=== PATIENT | male | born 1980 | race Caucasian/White ===

== ENCOUNTER 2024-12-16 10:55 | Emergency (ER) | payer OTHER, SELFPAY ==
[2024-12-16 10:56] VITALS: BP 156/110
--- NOTE | 2024-12-16 12:03 | ED.GENMED ---
History of Present Illness
General
Chief Complaint: Anal/Rectal Problem
Source: patient
Exam Limitations: none
Time Seen by Provider: 12/16/24 11:39
History of Present Illness
History of Present Illness:
44-year-old male presents with increasing pain and swelling to the perianal region over the past several days. Associate with intermittent fever. Started as lower back pain progressed into perianal pain. He seen by the doctor yesterday and was
started on Cipro. He has an appoint with colorectal in 2 days however the pain is increasing. No other complaints at this time
Past History
Past History
ED Past Medical History: None
ED Past Surgical History: Other (dental)
Social History
Tobacco: Non-smoker
Alcohol: None
Drug: None
Personal:
Living: with family
Phy Exam
Physical Exam
Physical Exam:
General: Well-appearing male no acute respiratory distress
HEENT normocephalic atraumatic abdomen is
Soft nontender
Rectal exam: Area of fluctuant noted over the perianal region on the right side at about 3:00. There is a small amount of drainage. This is tender to the touch
Course
Orders/Labs/Results
Orders:
Orders
12/16/24 12:01
HYDROmorphone [Dilaudid] 0.5 mg IV NOW STA
12/16/24 12:09
Complete Blood Count/With Diff Urgent
Comprehensive Metabolic Panel Urgent
Abnormal Lab Results
12/16/24
12:09
MPV 10.8 H fL
(7.4-10.4)
Absolute Neuts (auto) 8.6 H 10^3/uL
(1.4-6.5)
Absolute Lymphs (auto) 1.0 L 10^3/uL
(1.2-3.4)
Absolute Monos (auto) 1.1 H 10^3/uL
(0.1-0.6)
Neutrophils % 79.9 H %
(42.2-75.2)
Lymphocytes % 9.1 L %
(20.5-51.1)
Monocytes % 10.3 H %
(1.7-9.3)
12/16/24 12:09
12/16/24 12:09
Vital Signs
Initial and Last Documented VS:
Initial Vital Signs
Temp Pulse Resp BP Pulse Ox
99.1 F 121 20 156/110 98
12/16/24 10:56 12/16/24 10:56 12/16/24 10:56 12/16/24 10:56 12/16/24 10:56
Last Documented Vital Signs
Temp Pulse Resp BP Pulse Ox
99.1 F 121 20 156/110 98
12/16/24 10:56 12/16/24 10:56 12/16/24 10:56 12/16/24 10:56 12/16/24 12:04
MDM/Problems Addressed
Differential Diagnosis Includes:
Perianal pain. Exam most consistent with abscess. Do not this thrombosed hemorrhoid. That abscess is quite visible. Discussion was had with patient regarding treatment options. Will decide incise and drain. Will treat with IV pain medication
prior to
*Pulse Oximetry
SaO2: 98
Oxygen Mode of Delivery: Room air
Patient hypoxic: no
*Critical Care Note
Total Time (30-74mins, 75-104mins- exclusive of procedures): Not Applicable
Update Note
Update Note:
Patient had his perianal abscess drained by myself. The area was cleansed with saline and anesthetized with 1% lidocaine with epinephrine. A large amount of purulent material was expressed after an 11 blade scalpel was used to make an incision.
Once the drainage slowed down loculations were broken up with needle drivers. Some further purulence was expressed followed by bloody return. This was then irrigated copiously with saline. Gauze was placed into the area to remain in place to
catch any further drainage. He will continue his antibiotic. He has a follow-up appoint with colorectal in 2 days. White count normal and blood work. No indication for admission patient feeling better
ED Attending Note
-
Portions of this chart may have been created with voice recognition software.� Occasional wrong word or��sound alike� substitutions may have occurred due to the inherent limitations of voice recognition software.
Discharge Plan
Departure
Patient Disposition: Home (Routine Discharge)
Date of Disposition: 12/16/24
Time of Disposition: 13:09
Patient with high blood pressure during this ER visit?: No
Discharge Problem:
Perianal abscess
Instructions: Anal Abscess and Fistula, Adult (DC)
Prescriptions:
No Action
cyclobenzaprine 10 MG tablet
10 mg PO TIDPRN PRN (Reason: back spasm/tightness) Qty: 30 0RF
hydrocodone-acetaminophen [Vicodin] 1 EACH tablet
1 ea PO Q4HPRN PRN (Reason: moderate pain) Qty: 12 0RF
levofloxacin 500 MG tablet
500 mg PO DAILY Qty: 7 0RF
sulfamethoxazole-trimethoprim 800 MG/160 MG tablet
1 tab PO BID Qty: 14 0RF
Referrals:
Cristian Swanson Jr., DO [Family Provider, Internal Medicine]
Activity Restrictions/Additional Instructions:
Continue with your antibiotic. Wash with warm soapy water. Return here for worsening symptoms otherwise keep your appointment with colorectal specialist
Interventions
Interventions:
*Risk Screen - Suicide Last Done: 12/16/24 10:56
*General Assessment Last Done: 12/16/24 10:56
*ED- Fall Risk Assessment Last Done: 12/16/24 11:46
*ED COVID-19 Vaccine History Last Done: 12/16/24 11:46
Discharge Date and Time
Print Language: [id number]
[2024-12-16] MEDS: DILAUDID 0.5 MG IV (12:12)
[2024-12-16 12:17] LABS: Hematocrit 41.5 % (39.0-52.0); Hemoglobin 14.2 g/dL (13.0-18.0); Mean Corp Hgb Conc. 34.2 g/dL (33.0-37.0); Mean Corpuscular Volume 83.0 fL (80.0-94.0); Nucleated Red Blood Cells % 0 % (-); Platelet Count 234 10^3/uL (130-400); Red Cell Dist. Width 13.1 % (11.5-14.5)
[2024-12-16 12:35] LABS: ALT (SGPT) 15 U/L (0-50); AST (SGOT) 17 U/L (17-59); Albumin 4.4 g/dl (3.5-5.0); Alkaline Phosphatase 82 U/L (38-126); Blood Urea Nitrogen 14 mg/dl (9-20); Calcium 9.0 mg/dl (8.4-10.2); Chloride 106 mmol/L (98-107); Glucose 99 mg/dl (70-99); Potassium 4.2 mmol/L (3.5-5.1); Sodium 138 mmol/L (135-145); Total Protein 7.5 g/dl (6.3-8.2); eGFR > 60.00
[2024-12-16 12:45] LABS: Carbon Dioxide 25 mmol/L (22-30)
[2024-12-16 13:18] VITALS: BP 145/81
== END 2024-12-16 13:47 | disposition home or self-care (01) ==
LOC: EMR 10:55
PROVIDERS: Physician Assistant; EMERGENCY PHYSICIAN Emergency Medicine; FAMILY PHYSICIAN Family Medicine
DX: K61.0 Anal abscess (principal); M54.50 Low back pain, unspecified; R50.9 Fever, unspecified; Z88.8 Allergy status to other drugs, medicaments and biological substances
CPT/HCPCS: 46050; 99284; 96374; 80053; 85025